=== PATIENT | male | born 1935 | race Caucasian/White ===

== ENCOUNTER 2021-01-22 20:03 | Emergency (ER) | payer OTHER ==
[2021-01-22 21:20] VITALS: BP 135/66; PULSE 66; TEMP 98.3; BMI 21.2
== END 2021-01-22 22:30 | disposition home or self-care (01) ==
LOC: JER 20:03
DX: Z46.6 Encounter for fitting and adjustment of urinary device (principal)
CPT/HCPCS: 76857; 99284-25